=== PATIENT | male | born 1970 | race Hispanic/Latino ===

== ENCOUNTER 2016-09-12 14:27 | Inpatient (IN) | payer OTHER ==
--- NOTE | 2016-09-12 15:47 | XRay Report ---
Single view chest: No previous studies are. History: Low oxygen after surgery. Findings: Cardiomegaly. Trachea is midline. Bibasilar segmental/discoid atelectasis. Normal CP angles. Impression: Bibasilar segmental/discoid atelectasis
[2016-09-12] MEDS ORDERED: PROVENTIL IH ONE ×2 (15:58→16:02)
--- NOTE | 2016-09-12 15:59 | Emergency Department Report ---
ED Shortness of Breath HPI - General Chief Complaint: Medical Clearance Stated Complaint: LOW O2 SATS AFTER SURGERY Time Seen by Provider: 09/12/16 15:22 Source: patient, EMS Mode of arrival: Stretcher Limitations: Other - History of Present Illness MD Complaint: shortness of breath -: Gradual Severity: mild Pain Scale: 2 Consistency: now resolved Improves With: oxygen Worsens With: lying flat Known History Of: COPD Context: other (had a surgical proceudre this morning and it was di room [facility]) Associated Symptoms: denies other symptoms - Related Data Home Oxygen Therapy: No Previous Rx's Medication Instructions Recorded Last Taken Type ALBUTEROL Inhaler [ProAir HFA 2 puff IH QID PRN #1 inhalation 09/12/16 Unknown Rx Inhaler] Allergies Allergy/AdvReac Type Severity Reaction Status Date / Time tramadol Allergy Unknown Verified 09/12/16 15:10 ED Review of Systems ROS: Stated complaint: LOW O2 SATS AFTER SURGERY Other details as noted in HPI Constitutional: denies: chills, fever Eyes: denies: eye pain, eye discharge, vision change ENT: denies: ear pain, throat pain Respiratory: denies: cough, shortness of breath, wheezing Cardiovascular: denies: chest pain, palpitations Endocrine: no symptoms reported Gastrointestinal: denies: abdominal pain, nausea, diarrhea Genitourinary: denies: urgency, dysuria Musculoskeletal: denies: back pain, joint swelling, arthralgia Skin: denies: rash, lesions Neurological: denies: headache, weakness, paresthesias Psychiatric: denies: anxiety, depression Hematological/Lymphatic: denies: easy bleeding, easy bruising ED Past Medical Hx - Past Medical History Previous Medical History?: Yes Hx Hypertension: Yes - Surgical History Past Surgical History?: Yes Additional Surgical History: 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 - Social History Smoking Status: Current Every Day Smoker Substance Use Type: None - Medications Home Medications: Home Medications Medication Instructions Recorded Confirmed Last Taken Type ALBUTEROL Inhaler [ProAir HFA 2 puff IH QID PRN #1 inhalation 09/12/16 Unknown Rx Inhaler] ED Physical Exam - General Limitations: Other General appearance: alert, in no apparent distress - Head Head exam: Present: atraumatic, normocephalic - Eye Eye exam: Present: normal appearance - ENT ENT exam: Present: mucous membranes moist - Neck Neck exam: Present: normal inspection - Respiratory Respiratory exam: Present: normal lung sounds bilaterally, decreased breath sounds. Absent: respiratory distress, wheezes (S), rales, rhonchi, stridor, chest wall tenderness, accessory muscle use (I was asking to), prolonged expiratory - Cardiovascular Cardiovascular Exam: Present: regular rate, normal rhythm. Absent: systolic murmur, diastolic murmur, rubs, gallop - GI/Abdominal GI/Abdominal exam: Present: soft, normal bowel sounds - Rectal Rectal exam: Present: deferred - Extremities Exam Extremities exam: Present: normal inspection - Back Exam Back exam: Present: normal inspection - Neurological Exam Neurological exam: Present: alert, oriented X3 - Psychiatric Psychiatric exam: Present: normal affect, normal mood - Skin Skin exam: Present: warm, dry, intact, normal color. Absent: rash ED Course Vital Signs 09/12/16 09/12/16 09/12/16 15:42 15:45 16:05 Pulse Rate [ 85 Posterior Bilateral Throughout] Respiratory 20 Rate [Posterior Bilateral Throughout] Blood Pressure 130/82 O2 Sat by Pulse 88 90 Oximetry ED Medical Decision Making - Radiology Data Radiology results: report reviewed, image reviewed - Medical Decision Making Patient doing well, gave albuterol here , sats at 93% and above, able to walk in the ER with no difficulty breathing , I wanted to observe him a longer time here in the ER, but the patient wants to go home, Will dc with proper follow up. Critical care attestation.: If time is entered above; I have spent that time in minutes in the direct care of this critically ill patient, excluding procedure time. ED Disposition Clinical Impression: Shortness of breath Disposition: DISCHARGED TO HOME OR SELFCARE Is pt being admited?: No Does the pt Need Aspirin: No Condition: Good Instructions: Dyspnea (ED) Prescriptions: ALBUTEROL Inhaler [ProAir HFA Inhaler] 2 puff IH QID PRN #1 inhalation PRN Reason: Shortness Of Breath Referrals: PRIMARY CARE,MD [Primary Care Provider] - 3-5 Days Time of Disposition: 16:22
[2016-09-12] MEDS ORDERED: NACL 0.9% 1000 ML 1,000 ML IV ONE (16:55)
[2016-09-12 17:56] LABS: Hematocrit 43.1 % (35.5-45.6); Hemoglobin 13.9 gm/dl (11.8-15.2); Mean Corpuscular HGB Conc 32 % (32-34); Mean Corpuscular Hemoglobin 28 pg (28-32); Mean Corpuscular Volume 88 fl (84-94); Platelet Count 322 K/mm3 (140-440); Red Blood Count 4.91 M/mm3 (3.65-5.03); Red Cell Distribution Width 15.1 % (13.2-15.2); White Blood Count 18.5 K/mm3 (4.5-11.0)
[2016-09-12 18:11] LABS: INR 0.93 (0.87-1.13); Partial Thromboplastin Time 27.2 Sec. (24.2-36.6)
[2016-09-12 18:17] LABS: Creatine Kinase MB 4.8 ng/mL (0.0-4.0)
[2016-09-12 18:18] LABS: Alanine Aminotransferase 18 units/L (7-56); Albumin 3.3 g/dL (3.9-5); Albumin/Globulin Ratio 0.7 %; Alkaline Phosphatase 107 units/L (35-129); Anion Gap 15 mmol/L; Bilirubin,Total 0.2 mg/dL (0.1-1.2); Blood Urea Nitrogen 12 mg/dL (9-20); Calcium 9.1 mg/dL (8.4-10.2); Carbon Dioxide 30 mmol/L (22-30); Creatine Kinase 273 units/L (55-170); Glucose 118 mg/dL (75-100); Potassium 4.9 mmol/L (3.6-5.0); Sodium 136 mmol/L (137-145); Total Protein 7.9 g/dL (6.3-8.2)
--- NOTE | 2016-09-12 18:39 | Emergency Department Report ---
Blank Doc - Documentation Documentation: Nurse attempted to discharge the patient and he became hypoxic, in the mid 80s, labs negative except for elevated ddimer that will be follow by ct chest to rule out PE, cardiac enzymes negative, ekg negative , cxr with bilateral atelectasis. Spoke to hospitalist and will admit
--- NOTE | 2016-09-12 18:49 | History and Physical Report ---
History of Present Illness Chief complaint: I cant breathe History of present illness: 45 YO Male with Nicotine Dependence, HTN, Metabolic Syndrome, COPD presents to ED for evaluation. Pt was seen at an outpatient surgery surgery for right arm surgery, but was found to have persistent hypoxemia with oxygen saturation in the low 80's. EMS notified and patient transported to [facility] for evaluation. Pt seen and evaluated in ED. Pt denies fever, chills, CP, Palpitations, Leg swelling, Calf pain, prolonged travel/immobility, individual/family history of DVT/PE, Syncope, hemoptysis, recent ill contacts. Pt states that he recently cut back on his smoking, and has been experiencing a productive cough with increasing clear sputum over the past two weeks with worsening symptoms over the past 2 days.. Pt acknowledges orthopnea. Past History Past Medical History: COPD, hypertension Past Surgical History: Other (right arm surgery) Social history: , lives with family, smoking. denies: alcohol abuse, prescription drug abuse Family history: hypertension Medications and Allergies Allergies Allergy/AdvReac Type Severity Reaction Status Date / Time tramadol Allergy Unknown Verified 09/12/16 15:10 Home Medications Medication Instructions Recorded Confirmed Last Taken Type ALBUTEROL Inhaler [ProAir HFA 2 puff IH QID PRN #1 inhalation 09/12/16 Unknown Rx Inhaler] HYDROcodone/APAP 10-325 [[place] 1 each PO Q4H PRN 09/12/16 09/12/16 Unknown History 10/325] Lisinopril [Zestril] 20 mg PO QDAY 09/12/16 09/12/16 Unknown History amLODIPine [Norvasc] 5 mg PO DAILY 09/12/16 09/12/16 Unknown History Review of Systems All systems: negative Respiratory: shortness of breath Exam - Constitutional Vitals: Temp Pulse Resp BP Pulse Ox 76 20 127/68 89 09/12/16 16:18 09/12/16 17:17 09/12/16 17:31 09/12/16 17:31 General appearance: Present: mild distress, obese - EENT Eyes: Present: PERRL ENT: hearing intact, clear oral mucosa - Neck Neck: Present: supple, normal ROM - Respiratory Respiratory effort: normal Respiratory: bilateral: diminished - Cardiovascular Heart Sounds: Present: S1 & S2. Absent: rub, click - Extremities Extremities: pulses symmetrical, No edema Peripheral Pulses: within normal limits - Abdominal General gastrointestinal: Present: soft, non-tender, non-distended, normal bowel sounds Male genitourinary: Present: normal - Integumentary Integumentary: Present: clear, warm, dry - Musculoskeletal Musculoskeletal: gait normal, strength equal bilaterally - Psychiatric Psychiatric: appropriate mood/affect, intact judgment & insight - Neurologic Neurologic: CNII-XII intact, moves all extremities Results - Labs CBC & Chem 7: 09/12/16 17:33 09/12/16 17:33 Labs: Abnormal lab results 09/12/16 09/12/16 09/12/16 Range/Units 17:33 17:33 17:33 WBC 18.5 H (4.5-11.0) K/mm3 D-Dimer 333.28 H (0-234) ng/mlDDU Sodium 136 L (137-145) mmol/L Chloride 96.0 L (98-107) mmol/L Glucose 118 H (75-100) mg/dL Total Creatine Kinase (55-170) units/L CK-MB (CK-2) (0.0-4.0) ng/mL Albumin 3.3 L (3.9-5) g/dL 09/12/16 Range/Units 17:33 WBC (4.5-11.0) K/mm3 D-Dimer (0-234) ng/mlDDU Sodium (137-145) mmol/L Chloride (98-107) mmol/L Glucose (75-100) mg/dL Total Creatine Kinase 273 H (55-170) units/L CK-MB (CK-2) 4.8 H (0.0-4.0) ng/mL Albumin (3.9-5) g/dL Assessment and Plan - Patient Problems (1) Acute hypoxemic respiratory failure Current Visit: Yes Status: Acute Plan to address problem: Supplemental oxygen, Nebulizer therapy, NIPPV as clinically indicated, Pulmonary consulted, incentive spirometry, Chest PT for suspected mucous plugging, CTA chest, supportive care. (2) Sepsis Current Visit: Yes Status: Acute Qualifiers: Sepsis type: S Plan to address problem: Sepsis Protocol: IV abx, IVF, supportive care, serial lactate level, monitor uop q shift, blood cultures (3) HTN (hypertension) Current Visit: Yes Status: Acute Qualifiers: Hypertension type: H Plan to address problem: Monitor bp q shift, supportive care. (4) Metabolic syndrome Current Visit: Yes Status: Acute Plan to address problem: Pt counseled, balanced diet, increased physical actility (5) DVT prophylaxis Current Visit: Yes Status: Acute
[2016-09-12] MEDS ORDERED: DUONEB 0.5 MG-3 MG/3 ML SOLN IH PRN (18:52)
[2016-09-12 19:02] LABS: Blastocytes % (Manual) 0 %; Eosinophils % (Manual) 0 % (0.0-4.3)
[2016-09-12 19:03] LABS: Diff Status Complete; Large Platelets Few; RBC Morphology Normal
[2016-09-12] MEDS ORDERED: PROVENTIL IH PRN (19:03)
[2016-09-12] MEDS ORDERED: LEVAQUIN 750MG/150ML 750 MG/150 ML BAG IV SCH (20:00)
[2016-09-12] MEDS ORDERED: HEPARIN SUB-Q SCH (22:00)
--- NOTE | 2016-09-12 22:29 | Cat Scan Report ---
FINAL REPORT PROCEDURE: CT angiogram chest. TECHNIQUE: Computerized tomographic angiography of the chest was performed after the IV injection of iodinated nonionic contrast including image processing. The image data was postprocessed using 2-dimensional multiplanar reformatted (MPR) and 3-dimensional (MIP and/or volume rendered) techniques. HISTORY: Dyspnea. COMPARISON: No prior studies are available for comparison. FINDINGS: The trachea and central bronchi appear normal. The thoracic aorta has a normal caliber without evidence of dissection. The pulmonary arteries enhance normally. There are no definite filling defects to indicate pulmonary embolism. There is no mediastinal adenopathy. The heart size is normal. There are no pleural effusions. There is some linear subsegmental atelectasis in the right upper lobe and in the left lower lobe. There is a small area of consolidation in the right lower lobe. This may represent pneumonia. Clinical correlation is recommended. The thoracic skeleton appears intact. IMPRESSION: No definite signs of pulmonary embolism. Small area of consolidation in the right lower lobe.
[2016-09-12] MEDS ORDERED: HEPARIN ONE (22:46)
[2016-09-13] MEDS: PERCOCET 5/325 PO PRN ×2 (02:57→08:47)
--- NOTE | 2016-09-13 09:01 | Admit Criteria Form ---
Admission Criteria Documentation: PULMONARY DISEASE GRG Clinical Indications for Admission to Inpatient Care ( Place 'X' for any and all applicable criteria): Hospital admission is needed for appropriate care of the patient because of ANY ONE of the following(1): [ ]I. Impending or actual respiratory arrest ( Use Respiratory Failure Criteria for severe respiratory disease and long-term mechanical ventilation patients) (4) [ ]II. Severe airflow or ventilation abnormalities (not responsive to emergency and observation care treatment as appropriate) as indicated by ANY ONE of the following(5)(6)(7)(8) : [ ]a) PCO2 > 42 mm Hg (5.6 kPa) and pH < 7.35 (new) [ ]b) Documented PCO2 increase > 5 mm Hg (0.7 kPa) from disease baseline [ ]c) Airflow measurements[A] < 60% of previous best or predicted ( e.g., PEF <300 L/minute) despite intensive emergent treatment[B] [ ]d) Required respiratory treatments that are performable only in acute inpatient setting [X]III. Severe respiratory findings (not responsive to emergency and observation care treatment as appropriate) including ANY ONE of the following(5)(8)(9): [ ]a) Respiratory distress as indicated by ALL of the following(5)(10): [ ]i) Patient with ANY ONE of the following: [ ]1) Dyspnea (difficulty breathing) [ ]2) Abnormal breathing pattern (eg, chest retractions) [ ]3) Tachypnea [ ]4) Other evidence of difficulty breathing [X]ii) Evidence of respiratory compromise indicated by ANY ONE of the following: [X]1) Hypoxemia [ ]2) Altered mental status [ ]3) Other evidence of respiratory compromise (eg, pulmonary edema on chest x-ray) [ ]b) Stridor [ ]c) Gross hemoptysis(11) [ ]d) Acute cyanosis [ ]IV. High-risk pulmonary infection as indicated by ANY ONE of the following( 19)(20)(21)(22): [ ]a) Temperature less than 95 degrees F(35 degrees C) or greater than 103.1 degrees F(39.5 degrees C) [ ]b) Hemodynamic instability that remains after emergency or observation level care (as appropriate) [ ]c) Immunocompromised patient (eg, AIDS, post transplant, neutropenic) [ ]d) History of severe COPD [ ]e) History of severely symptomatic congestive heart failure [ ]f) Other high-risk comorbidity (eg, poorly controlled diabetes, cirrhosis, chronic renal insufficiency) [ ]g) Hypoxemia (new) [ ]h) Outpatient, observation, or recovery facility therapy has failed, is not appropriate, or is not feasible [ ]V. Severe atelectasis or lung collapse(15)(16) [ ]. Tuberculosis requiring inpatient treatment as indicated by ANY ONE of the following(17)(18): [ ]a) New positive acid-fast bacilli sputum smear [ ]b) Positive acid-fast bacilli smear (under current treatment), with ANY ONE of the following: [ ]i) Unexposed household contacts [ ]ii) Infants or immunosuppressed household contacts [ ]iii) Patient unable or unwilling to avoid exposing others [ ]iv) Severe immunocompromised patient (eg, AIDS, post transplant, neutropenic) [ ]VII. Empyema or lung abscess(13)(14) [ ]VIII. Severe pulmonary arterial hypertension or pulmonary vascular disease requiring inpatient care indicated by ANY ONE of the following(24)(25): [ ]a) Initiation or change of vasodilators (IV, subcutaneous, or inhaled) or other vasoactive medications needed [ ]b) IV anticoagulation needed (eg, immediate anticoagulation necessary, alternatives not appropriate) [ ]c) Arterial or pulmonary artery catheter monitoring needed due to infusion or other treatment [ ]IX. Chronic lung disease with severe deterioration (not responsive to emergency and observation care treatment as appropriate) as indicated by ANY ONE of the following (6)(12): [ ]a) SaO2 5% below baseline in patient with chronic hypoxemia [ ]b) New requirement for supplemental oxygen to keep SaO2 at baseline or acceptable level [ ]c) Required supplemental oxygen performable only in acute inpatient setting [ ]d) Severe airflow or ventilation abnormalities [ ]e) Rapid rate of exacerbation onset [ ]f) Previously mobile patient unable to walk between rooms [ ]g) Inability to eat or sleep due to dyspnea [ ]h) Altered mental status [ ]X. Cystic fibrosis with severe deterioration as indicated by ANY ONE of the following(26)(27): [ ]a) Severe exacerbation that does not respond to intensified home therapy [ ]b) Pneumonia [ ]c) Hemoptysis [ ]d) Atelectasis [ ]e) Pneumothorax [ ]f) Respiratory failure [ ]g) Severe exacerbation with patient unable to perform prescribed treatments at home [ ]XI. Severe right heart failure as indicated by ANY ONE of the following(24) (25): [ ]a) Increasing organ failure (eg, liver congestion with significant and worsening or new elevation of transaminases) [ ]b) Anasarca [ ]c) Angina that requires inpatient care (eg, not treatable in emergency or observation level of care) [ ]d) Respiratory distress [ ]e) Syncope [ ]f) SBP < 90 mm Hg (new) [ ]XII. Injury requiring inpatient care (medical) as indicated by ANY ONE of the following(28): [ ]a) Significant inhalation injury (eg, smoke inhalation, other toxic inhalation) (29)(30)(31) [ ]b) Airway obstruction that remains or is unstable after emergency or observation level care(32) [ ]c) Severe pain requiring acute inpatient management [ ]d) Lung contusion [ ]e) Bronchial tree injury [ ]f) Air or fat emboli(33) [ ]g) Other injury not treatable in emergency or observation level care (eg, hemothorax) (34) [ ]XIII. Pulmonary hemorrhage or significant hemoptysis(11)(35)(36) [ ]XIV. Inpatient palliative care needed[C](37)(38)(39)(40) [ ]XV. Complications of lung transplant (eg, rejection, failure, respiratory infection) (23) [ ]XVI. Pulmonary Disease and ANY ONE of the following: [ ]a) General Admission Criteria [ ]b) Pediatric General Admission Criteria The original [facility] [employer] content created by [facility] [employer] has been revised. The portions of the content which have been revised are identified through the use of italic text or in bold, and [facility] has neither reviewed nor approved the modified material. All other unmodified content is copyright [facility]. Please see references footnoted in the [facility] Admission Criteria Met: Yes
--- NOTE | 2016-09-13 09:45 | Discharge Summary ---
Providers - Providers Date of Admission: 09/12/16 18:52 Date of discharge: 09/13/16 Attending physician: OSCAR QURESHI MD Primary care physician: KARAN HIDALGO MD Hospitalization Condition: Good Disposition: DISCHARGED TO HOME OR SELFCARE Time spent for discharge: 35 mins Exam - Constitutional Vitals: Temp Pulse Resp BP Pulse Ox 97.3 F L 87 13 122/59 93 09/13/16 08:00 09/13/16 09:21 09/13/16 09:21 09/13/16 09:21 09/13/16 09:21 Plan Follow up with: PRIMARY CAREMD [Primary Care Provider] - 3-5 Days Prescriptions: ALBUTEROL Inhaler [ProAir HFA Inhaler] 2 puff IH QID PRN #1 inhalation PRN Reason: Shortness Of Breath
[2016-09-13] MEDS ORDERED: NORVASC PO SCH (10:00)
[2016-09-13] MEDS ORDERED: ZESTRIL PO SCH (10:00)
--- NOTE | 2016-09-13 11:11 | Consultation ---
History of Present Illness Consult date: 09/13/16 Requesting physician: SOFI ACEVEDO Reason for consult: other (Acute Hypoxemic Respiratory Failure) History of present illness: PULMONARY/CCM CONSULT NOTE (Full dictation # [id number]) Please see dictated notes for full details Past History Past Medical History: COPD, hypertension Past Surgical History: Other (right arm surgery) Social history: , lives with family, smoking. denies: alcohol abuse, prescription drug abuse Family history: hypertension Medications and Allergies Allergies Allergy/AdvReac Type Severity Reaction Status Date / Time tramadol Allergy Unknown Verified 09/12/16 15:10 Home Medications Medication Instructions Recorded Confirmed Last Taken Type ALBUTEROL Inhaler [ProAir HFA 2 puff IH QID PRN #1 inhalation 09/12/16 Unknown Rx Inhaler] HYDROcodone/APAP 10-325 [[place] 1 each PO Q4H PRN 09/12/16 09/12/16 Unknown History 10/325] Lisinopril [Zestril] 20 mg PO QDAY 09/12/16 09/12/16 Unknown History amLODIPine [Norvasc] 5 mg PO DAILY 09/12/16 09/12/16 Unknown History Active Meds: Active Medications Albuterol (Proventil) 2.5 mg IH Q6HRT PRN PRN Reason: Wheezing Last Admin: 09/13/16 01:55 Dose: 2.5 mg Amlodipine Besylate (Norvasc) 5 mg PO DAILY [facility] Heparin Sodium (Porcine) (Heparin) 5,000 unit SUB-Q Q12HR JEROME Last Admin: 09/12/16 23:06 Dose: 5,000 unit Lisinopril (Zestril) 20 mg PO QDAY [facility] Oxycodone/Acetaminophen (Percocet 5/325) 2 tab PO Q4H PRN PRN Reason: Pain, Moderate (4-6) Last Admin: 09/13/16 08:47 Dose: 2 tab Physical Examination Vital signs: Vital Signs Pulse Ox 88 09/12/16 15:42 Results - Laboratory Findings CBC and BMP: 09/13/16 10:33 09/12/16 17:33 PT/INR, D-dimer PT 12.4 Sec. (12.2-14.9) 09/12/16 17:33 INR 0.93 (0.87-1.13) 09/12/16 17:33 D-Dimer 333.28 ng/mlDDU (0-234) H 09/12/16 17:33 Abnormal lab findings: Abnormal Labs 09/12/16 09/12/16 19:22 23:21 Lactic Acid 2.9 H* 2.6 H*
[2016-09-13 11:12] LABS: Hematocrit 38.1 % (35.5-45.6); Hemoglobin 12.2 gm/dl (11.8-15.2); Mean Corpuscular HGB Conc 32 % (32-34); Mean Corpuscular Hemoglobin 29 pg (28-32); Mean Corpuscular Volume 90 fl (84-94); Platelet Count 296 K/mm3 (140-440); Red Blood Count 4.23 M/mm3 (3.65-5.03); Red Cell Distribution Width 15.3 % (13.2-15.2)
[2016-09-13 11:16] LABS: White Blood Count 21.1 K/mm3 (4.5-11.0)
[2016-09-13 11:44] VITALS: BP 132/57
[2016-09-13 12:56] LABS: Basophils % (Manual) 0 % (0.0-1.8); Blastocytes % (Manual) 0 %; Eosinophils % (Manual) 0 % (0.0-4.3)
[2016-09-13 12:57] LABS: Diff Status Complete; Large Platelets Few; Platelet Estimate Cons; RBC Morphology Normal
[2016-09-13] MEDS ORDERED: ZOSYN/NS 4.5GM/100ML 4.5 GM/100 ML VIAL IV SCH (19:00)
--- NOTE | 2016-09-14 00:08 | Consultation ---
PULMONARY CONSULT NOTE CONSULTING PHYSICIAN: ____. REASON FOR CONSULTATION: Acute hypoxemic respiratory failure. CHIEF COMPLAINT AND HISTORY OF PRESENT ILLNESS: The patient is a 45-year-old male, obese, history of metabolic syndrome and apparently COPD came to the Emergency Room after he desaturated while he had an outpatient surgery done. He had a right rotator cuff repair. He was found to have persistent hypoxemia after the procedure. Emergency medical services brought into the ER. In the ER, he was evaluated. He denied fevers and chills, denied chest pains, he denied leg pain, new onset of leg pain is unilaterally or bilaterally, denied any prior history of venous thromboembolic phenomenon. He did admit to the fact that he has a history of producing a lot of phlegm by which I believe was trying to describe chronic bronchitis. However, when I also take a sleep history from him, he admits to snoring. He admits to not being able to sleep on his back. He states that it has been since he was acute. He was unsure of witnessed apneas, but never been checked for obstructive sleep apnea. When I stopped by to see him, he was resting in bed in the Intensive Care Unit where he had been transferred after an attempt to discharge him in the ER showed that he desaturated into the low 80s. He was feeling better and wanted to go home, denied chest pains. He denied any nausea, vomiting, or overt aspiration. When asked about tobacco use/abuse history, he does have 43-[id number]-[id number]-year tobacco smoking history. That really is as much of the history of presentation as I have. PAST MEDICAL HISTORY: Morbidly obese, COPD, hypertension, metabolic syndrome. PAST SURGICAL HISTORY: He has had right hand surgery. MEDICATIONS: He was on at the time I stopped by to see him, according to the medication administration record included the following: Albuterol 2.5 mg nebulized q.6h. p.r.n. for wheezing, Norvasc 5 mg p.o. daily, heparin 5000 units subq q.12h, lisinopril 20 mg p.o. daily and Percocet 5/325 one tablet p.o. q. 4 hours p.r.n. moderate pain. ALLERGIES: TRAMADOL. Nature of this allergy is unknown. DIET: Obese gentleman. Denies significant weight loss or gain in the preceding few weeks to months. FAMILY AND SOCIAL HISTORY: Lives in the community. He has a 53-qtvo-[id number]-year tobacco smoking history. Denies alcohol or illicit drug use or abuse of prescription drug use or abuse. There is a family history of high blood pressure. REVIEW OF SYSTEMS: No real loss of consciousness. He was put down for the procedure. No new onset focal weakness. Denies gross hematochezia or melena. Denies gross hematuria or dysuria. No hematemesis. No hemoptysis. No palpitations. Complete review of systems obtained. Pertinent positives and/or negatives as in body of history above, otherwise noncontributory. PHYSICAL EXAMINATION: VITAL SIGNS: At presentation, he was afebrile, temperature 98.5, pulse 94, respiratory rate 24, blood pressure 130/82, oxygen sat recorded at 79% at the point in the Emergency Room. HEAD, EYES, EARS, NOSE AND THROAT: Pupils are equal, round, about 4 mm, reactive to light. Extraocular muscle movements are intact. Grossly, no palpable lymph nodes in the supraclavicular or submandibular lymph node chains. He has a bandage to the right shoulder where he had the surgery done. LUNGS: Auscultation of both lung brambila unremarkable except for diminished breath sounds. No wheezing. HEART: Heart sounds 1 and 2 are heard. They were regular in rate and rhythm at time of my evaluation. ABDOMEN: Soft. Bowel sounds are positive, nontender. EXTREMITIES: Without overt digital clubbing, cyanosis, or pedal edema. NEUROLOGIC: The exam was grossly nonfocal. LABORATORY DATA: From my review are as follows: White cell count 18,500, hemoglobin 13.9, hematocrit ___, platelets 322. INR is 0.93, D-dimer was slightly elevated at 333 ____. Serum sodium 136, potassium 4.9, chloride 96, bicarbonate 30, BUN was 12, creatinine 0.8, and glucose was 118. Lactic acid level was 2.9 at presentation is down to 2.3 ___ trending downwards. Liver function tests essentially within normal limits. CPK was 273. Troponin within normal limits. Albumin slightly diminished at 3.3. No microbiologic studies. Radiographic studies have been reviewed. CT of the chest reviewed, mild right lower lobe consolidation as well as negative for filling defects consistent with pulmonary emboli. I could not review the film myself ____ report. ASSESSMENT AND PLAN: We have a morbidly obese gentleman in with desaturations status operative procedure. I do feel that this combination of factors and major ___ likely obstructive sleep apnea and a phenotype was exposed by the administration of sedation/anesthesia for the procedure. He may have on top of that developed some small volume atelectasis and he may have a little bit of an aspiration process going on. Respiratory ken, I have advised that he goes ahead and gets sleeps clinic evaluation at that time once he has been discharged from the hospital. Home oxygen evaluation will be done prior to discharge and I do not think he is going to qualify incentive spirometry will be offered. A 5-day course of Levaquin for community-acquired pneumonia therapy is appropriate. He will be on GI and DVT prophylaxis while he is in the hospital. Flu and pneumonia vaccination will be per protocol. Tobacco cessation has been counseled. Thank you very much for the consult. We will follow along and make further recommendations as picture progresses/becomes clearer. JOB# [id number] LAURA/LIBORIO
== END 2016-09-13 12:01 | disposition left against medical advice (07) | DRG 871 ==
LOC: ED 14:27 → CC1 18:52
PROVIDERS: ADMIT Internal Medicine; ATTEND Internal Medicine
DX: A41.9 Sepsis, unspecified organism (principal); J96.01 Acute respiratory failure with hypoxia; Z68.41 Body mass index [BMI] 40.0-44.9, adult; J44.9 Chronic obstructive pulmonary disease, unspecified; I10 Essential (primary) hypertension; E88.81 Metabolic syndrome and other insulin resistance; F17.210 Nicotine dependence, cigarettes, uncomplicated; E66.01 Morbid (severe) obesity due to excess calories; Z88.6 Allergy status to analgesic agent; Z71.6 Tobacco abuse counseling; Z82.49 Family history of ischemic heart disease and other diseases of the circulatory system
CPT/HCPCS: 36415; 71010; 71275; 80053; 82140; 82550; 82553; 84484; 85007; 85025; 85379; 85610; 85730; 93005; 93010; 94640; 94760; 96361; 96365; 96372; 96375; 99406; J1644; J1956; J2930; J7030; Q9967